=== PATIENT | female | born 1995 | race Caucasian/White ===

== ENCOUNTER 2021-10-02 20:48 | Emergency (ER) | payer OTHER ==
[2021-10-02 21:47] VITALS: BP 121/82; PULSE 76; RESP 17; TEMP 98.1; BMI 19.3
== END 2021-10-02 23:52 | disposition home or self-care (01) ==
LOC: JERFT 20:48 → JER 20:48 → JERFT 23:52
DX: R21 Rash and other nonspecific skin eruption (principal)
CPT/HCPCS: 99281-25